=== PATIENT | male | born 1980 | race Caucasian/White ===

== ENCOUNTER 2017-03-11 18:44 | Emergency (ER) | payer OTHER ==
[2017-03-11 18:50] VITALS: BP 136/89; TEMP 98.3; O2SAT 98
--- NOTE | 2017-03-11 19:43 | C.PDOC ---
History Of Present Illness 36 year old patient presents to the ED complaining of right great toe pain and swelling. Patient states he had a pedicure done about a month ago and they tried to excise the ingrown nail. He's been complaining of pain since, but today he notes swelling and redness. Patient denies numbness, weakness, fever, or any trauma. Time Seen by Provider: 03/11/17 19:16 Chief Complaint (Nursing): Lower Extremity Problem/Injury History Per: Patient History/Exam Limitations: no limitations Onset/Duration Of Symptoms: Worse Since (today), Other (1 month) Current Symptoms Are (Timing): Still Present Severity: Mild Pain Scale Rating Of: 3 Recent travel outside of the [place]: No Past Medical History Reviewed: Historical Data, Nursing Documentation, Vital Signs Vital Signs: Last Vital Signs Temp 98.3 F 03/11/17 18:47 Pulse 75 03/11/17 19:58 Resp 18 03/11/17 19:58 BP 136/89 03/11/17 18:47 Pulse Ox 98 03/11/17 20:45 Family History: States: Unknown Family Hx - Social History Hx Alcohol Use: Yes Hx Substance Use: No - Immunization History Hx Tetanus Toxoid Vaccination: No Hx Influenza Vaccination: Yes (2016) Hx Pneumococcal Vaccination: No Review Of Systems Except As Marked, All Systems Reviewed And Found Negative. Constitutional: Negative for: Fever Musculoskeletal: Positive for: Other (right great toe pain and swelling) Neurological: Negative for: Weakness, Numbness Physical Exam - Physical Exam Appears: Non-toxic, No Acute Distress Skin: Warm, Dry Cardiovascular: Rhythm Regular Extremity: Normal ROM, No Pedal Edema, No Calf Tenderness, Capillary Refill (<2 seconds), No Deformity, No Swelling, Other (right great toe: (+)erythema and swelling to the distal aspect of the right great toe (+)ingrown nail with minimal discharge to the medial aspect of the right great toe nail (+)<2 seconds capillary refill (+)normal pedal pulses (+)full ROM) Neurological/Psych: Oriented x3, Normal Motor, Normal Sensation Gait: Steady ED Course And Treatment O2 Sat by Pulse Oximetry: 98 (RA) Pulse Ox Interpretation: Normal Progress Note: Plan: -Keflex, Motrin. Patient was instructed to follow up with podiatry in 1-2 days or return if symptoms worsen or new concerning symptoms arise. Reassessment Condition: Improved Disposition Counseled Patient/Family Regarding: Diagnosis, Need For Followup, Rx Given - Disposition Referrals: Podiatry Clinic [Outside] Disposition: HOME/ ROUTINE Disposition Time: 19:43 Condition: STABLE Additional Instructions: Please follow up with podiatry Take medications as prescribed Return to ER if worse Prescriptions: Cephalexin [cephalexin] 500 mg PO QID #28 cap Ibuprofen [Motrin] 600 mg PO QID #30 tab Instructions: Ingrown Nail (ED) - Clinical Impression Clinical Impression: Ingrowing toenail with infection - PA / HYDRODYNAMICIST / Resident Statement MD/DO has reviewed & agrees with the documentation as recorded. - Scribe Statement The provider has reviewed the documentation as recorded by the Scribe Orquidea Barney All medical record entries made by the Scribe were at my direction and personally dictated by me. I have reviewed the chart and agree that the record accurately reflects my personal performance of the history, physical exam, medical decision making, and the department course for this patient. I have also personally directed, reviewed, and agree with the discharge instructions and disposition.
[2017-03-11 20:01] VITALS: PULSE 75; RESP 18
== END 2017-03-11 20:00 | disposition home or self-care (01) ==
LOC: C.ER 18:44
DX: L60.0 Ingrowing nail (principal)